=== PATIENT | female | born 1990 | race Two or more races ===

== ENCOUNTER 2021-12-23 11:54 | Emergency (ER) | payer OTHER ==
[~2021-12-23] VITALS: Ht 177.8 cm; Wt 104.3 kg
== END 2021-12-23 19:51 | disposition home or self-care (01) ==
LOC: ER 11:54 → EMR PED 12:00 → ER 19:51
DX: O20.9 Hemorrhage in early pregnancy, unspecified (principal)

== ENCOUNTER 2022-08-04 12:26 | Outpatient (CLI) | payer OTHER | END 2022-08-04 13:06 | disposition home or self-care (01) | LOC: NST 12:26 | PROVIDERS: ATTEND Obstetrics & Gynecology Gynecology | DX: Z34.83 Encounter for supervision of other normal pregnancy, third trimester (principal) ==

== ENCOUNTER 2022-08-04 15:25 | Inpatient (IN) | payer OTHER ==
[~2022-08-04] VITALS: Ht 177.8 cm; Wt 127.0 kg
[2022-08-09] MEDS ORDERED: OXYC1TAB9 PO ×2 (09:55)
[2022-08-09] MEDS ORDERED: KETO10TA2 PO ×2 (09:55)
== END 2022-08-09 15:39 | disposition home or self-care (01) | DRG 788 ==
LOC: O/R 08-06 08:33 → OB/GYN 08-06 13:20
PROVIDERS: ADMIT Obstetrics & Gynecology Gynecology; ATTEND Obstetrics & Gynecology Gynecology
PROC: 0UB90ZZ Excision of Uterus, Open Approach (ICD-10-PCS; 2022-08-06)
PROC: 4A1HXCZ Monitoring of Products of Conception, Cardiac Rate, External Approach (ICD-10-PCS; 2022-08-06)
PROC: 10D00Z1 Extraction of Products of Conception, Low, Open Approach (ICD-10-PCS; principal; 2022-08-06 13:20)
DX: O34.211 Maternal care for low transverse scar from previous cesarean delivery (principal); O34.13 Maternal care for benign tumor of corpus uteri, third trimester; D25.9 Leiomyoma of uterus, unspecified; Z3A.38 38 weeks gestation of pregnancy; Z37.0 Single live birth; Z20.822 Contact with and (suspected) exposure to COVID-19

== ENCOUNTER 2022-08-06 06:10 | Outpatient (CLI) | payer OTHER | END 2022-08-06 08:02 | disposition home or self-care (01) | LOC: NST 06:10 | PROVIDERS: ATTEND Obstetrics & Gynecology Gynecology | DX: Z34.83 Encounter for supervision of other normal pregnancy, third trimester (principal) ==